=== PATIENT | female | born 1980 | race Caucasian/White ===

== ENCOUNTER 2023-08-15 01:58 | Emergency (ER) | payer OTHER, SELFPAY ==
[2023-08-15 02:00] VITALS: BP 136/90
[2023-08-15 02:30] VITALS: BMI 36.3
--- NOTE | 2023-08-15 02:51 | ED.GENMED ---
History of Present Illness
<DORON Berger - Last Filed: 08/15/23 03:31>
General
Chief Complaint: Female Jumpbasting Facing Baster/Gu symptoms
Time Seen by Provider: 08/15/23 02:50
Travel History
Have you had any contact with someone who has COVID-19?: No
Do you have any symptoms of coronavirus? Fever > 100 degrees, chills, cough, shortness of breath, sore throat, loss of taste or smell, muscle aches, or headache?: No
History of Present Illness
History of Present Illness:
This is a 42 yo female PMH HSV presenting for a vaginal rash extending to the inner thigh x 2 days. She states this rash is a burning pain 7/10 in severity and is pruritic. She took an antifungal suppository 2 days ago which she states did not help.
She denies dysuria, oliguria, discharge, abnormal odors, fever, nausea, vomiting, and abdominal pain.
She notes that she just completed a course of augmentin for an ear infection.
She has history of genital herpes which started in 1998. She states she has not had genital herpes in several years and has not taken antiviral therapy since then.
Past History
<DORON Berger - Last Filed: 08/15/23 03:31>
Past History
ED Past Medical History: Other (Ovarian cysts)
ED Past Surgical History: Other (Noncontributory)
Social History
Tobacco: Non-smoker
Alcohol: Occasional
Drug: None
Personal:
Living: with family
Family History
Family History: Other (Noncontributory)
Review of Systems
<DORON Berger - Last Filed: 08/15/23 03:31>
Review of Systems
Allergies reviewed?: Yes
Constitutional: Reports no symptoms
EENT: Reports no symptoms
Respiratory: Reports no symptoms
Cardiac: Reports no symptoms
ABD/GI: Reports no symptoms
: Reports no symptoms
Skin: Reports itching and rash
Phy Exam
<DORON Berger - Last Filed: 08/15/23 03:31>
General Physical Exam
General Presentation: well appearing
General age: appears stated age
Cardiovascular Exam
Cardiovascular Exam: regular rate/rhythm
Pulmonary Exam
Pulmonary Exam: lungs clear
Skin Exam
Skin Exam: redness (flat red rash extending from vulva to inner L thigh)
Course
<DORON Berger - Last Filed: 08/15/23 03:31>
Orders/Labs/Results
Orders:
Orders
08/15/23 03:20
Fluconazole [Diflucan] 150 mg PO NOW STA
Valacyclovir HCl [Valtrex] 500 mg PO NOW STA
Vital Signs
Initial and Last Documented VS:
Initial Vital Signs
Temp Pulse Resp BP Pulse Ox
98.9 F 96 22 136/90 100
08/15/23 02:00 08/15/23 02:00 08/15/23 02:00 08/15/23 02:00 08/15/23 02:00
Last Documented Vital Signs
Temp Pulse Resp BP Pulse Ox
98.9 F 96 22 136/90 100
08/15/23 02:00 08/15/23 02:00 08/15/23 02:00 08/15/23 02:00 08/15/23 02:00
<Eliana Aguirre DO - Last Filed: 08/15/23 03:49>
Orders/Labs/Results
Orders:
Orders
08/15/23 03:20
Fluconazole [Diflucan] 150 mg PO NOW STA
Valacyclovir HCl [Valtrex] 500 mg PO NOW STA
Vital Signs
Initial and Last Documented VS:
Initial Vital Signs
Temp Pulse Resp BP Pulse Ox
98.9 F 96 22 136/90 100
08/15/23 02:00 08/15/23 02:00 08/15/23 02:00 08/15/23 02:00 08/15/23 02:00
Last Documented Vital Signs
Temp Pulse Resp BP Pulse Ox
98.9 F 96 22 136/90 100
08/15/23 02:00 08/15/23 02:00 08/15/23 02:00 08/15/23 02:00 08/15/23 02:00
<DORON Berger - Last Filed: 08/15/23 03:31>
MDM/Problems Addressed
Differential Diagnosis Includes:
Suspected vulvocaginal candidiasis
-red, flat, pruritic rash
-very recent history of augmentin may have caused predisposition to vaginal candidal infection
Likely not genital herpes
-she does have a history of genital herpes, however it has been several years since last flare. Upon inspection, no fluid filled papules or vesicle noted
<DORON Berger - Last Filed: 08/15/23 03:31>
*Critical Care Note
Total Time (30-74mins, 75-104mins- exclusive of procedures): Not Applicable
<Eliana Aguirre DO - Last Filed: 08/15/23 03:49>
*Pulse Oximetry
Patient hypoxic: no
ED Attending Note
<DORON Berger - Last Filed: 08/15/23 03:31>
-
Portions of this chart may have been created with voice recognition software.� Occasional wrong word or��sound alike� substitutions may have occurred due to the inherent limitations of voice recognition software.
<Eliana Aguirre DO - Last Filed: 08/15/23 03:49>
ED Attending Note
Patient seen and examined by attending physician: Yes
I performed the substantive portion of visit, reviewed & personally made and approve the management plan that is documented in note by myself or RITA.: Yes
I performed a history and physical exam of patient and discussed management with resident, I reviewed resident's note and agree with documented findings and plan of care.: Yes
ED Attending Note:
This is a 42-year-old woman who has remote history of genital herpes. She believes her last outbreak was shortly after of her son in 2007.
More recently she was treated for UTI with a 1 week course of antibiotic that completed over a week ago. Shortly thereafter, approximately 6 days ago she developed moderate to significant vaginal itching. She assumed significant vaginal itching
and irritation was vaginal yeast infection and thus treated herself with a one-time Monistat vaginal inserted on Monday, August 11.
She continues with mild vulvovaginal itching that seem to spread to bilateral proximal thighs and medial inguinal region.
She thought that her pubic hair may be an issue thus she used a depilatory cream to bilateral proximal thighs and inguinal area 1-1/2 days ago and since then she has had increased irritation and concern for small white bumps, concern for potential
outbreak of herpes. She denies dysuria nor urgency and or hematuria.
Menstrual period began yesterday, normal and on time. Other than her regular vaginal bleeding she denies vaginal discharge.
She denies abdominal pain or back pain, no flank pain, no fever nor chills.
No history of diabetes nor immunocompromise.
Remote history of genital herpes as above, other than this no history of other STDs.
She attempted to call her survey researcher, Dr. Mota's office but then discovered that his local dose on hospice has closed.
GENERAL: 42-year-old woman appears her stated age, bright and alert, pleasant, appears in no acute distress.
EYE: anicteric
NECK: Supple, nontender, no meningismus, no significant adenopathy.
ENT: oral mucosa is moist. No rhinorrhea.
CARDIAC: Regular rate and rhythm. no murmur.
LUNGS: Clear breath sounds bilaterally, no acute respiratory distress, no wheezes/rales/rhonchi
ABDOMEN: Soft, nondistended, without focal tenderness, no r/g, no cvat. normoactive BS.
: There is moderate global inflammation and dryness of bilateral medial labia minora. There is minimal erythema labia majora and bilateral mid to distal inguinal regions without evidence of ulcerations/vesicles, no evidence of folliculitis, no
drainage, no palpable heat. There is scant vaginal blood.
NEUROLOGICAL: Alert and oriented x3, no focal neuro deficits. Gait is castaneda and steady.
SKIN: Warm and dry, normal color, good turgor.
MUSCULOSKELETAL: No C/C/E. peripheral pulses are full and equal b/l. No palpable tenderness.
PSYCH: Normal and appropriate interaction.
History and exam most consistent with candidal vulvovaginitis. An early underlying genital herpes outbreak certainly a consideration but no definitive evidence of herpes.
There is mild erythema inguinal region but no evidence of folliculitis, no evidence of cellulitis. I suspect the erythema may be continuation of candidiasis versus local irritation from depilatory cream.
Will treat vulvovaginitis with a dose of Diflucan 150 mg with recommendations to repeat this in 3 days time.
Will treat potential genital herpes with 3-day course of Valtrex.
Recommend she avoid depilatory creams as well as any other topical products.
Follow-up with PCP for recheck.
Discharge Plan
Departure
Patient Disposition: Home (Routine Discharge)
Date of Disposition: 08/15/23
Time of Disposition: 03:32
Patient with high blood pressure during this ER visit?: No
Condition: Good
Discharge Problem:
Candidal vulvovaginitis, Hx of herpes genitalis
Instructions: Vulvovaginal yeast infection, Genital Herpes (DC)
Prescriptions:
New
valacyclovir [Valtrex] 500 mg tablet
500 mg PO BID Qty: 6 1RF
fluconazole 150 mg tablet
150 mg PO Q3D Qty: 2 0RF
No Action
ibuprofen 800 MG tablet
800 mg PO PRN (Reason: pain)
hydrocodone-acetaminophen [Vicodin] 1 EACH tablet
1 ea PO Q6HPRN PRN (Reason: pain) Qty: 5 0RF
ferrous sulfate 325 mg (65 mg iron) tablet
325 mg PO BID Qty: 60 0RF
hydrocodone-acetaminophen 5-325 mg tablet
1 tab PO BID PRN (Reason: Pain) Qty: 10 0RF
Referrals:
Van Awan MD [Family Provider] - Call in 1-3 days for appt
Interventions
Interventions:
*Risk Screen - Suicide Last Done: 08/15/23 02:00
*General Assessment Last Done: 08/15/23 02:24
*Neglect/Abuse Screening Last Done: 08/15/23 02:00
*ED COVID-19 Vaccine History Last Done: 08/15/23 02:24
ED-Female Genitourinary Assessment Last Done: 08/15/23 02:25
Discharge Date and Time
Print Language: BELARUSIAN
[2023-08-15] MEDS: VALTREX 500 MG PO (03:55)
[2023-08-15] MEDS: DIFLUCAN 150 MG PO (04:03)
== END 2023-08-15 04:00 | disposition home or self-care (01) ==
LOC: EMR 01:58
PROVIDERS: EMERGENCY PHYSICIAN Emergency Medicine; FAMILY PHYSICIAN Family Medicine
DX: B37.31 Acute candidiasis of vulva and vagina (principal); Z86.19 Personal history of other infectious and parasitic diseases
CPT/HCPCS: 99283